=== PATIENT | male | born 1945 | race Caucasian/White ===

== ENCOUNTER → 2024-02-03 13:45 | Outpatient (CLI) | payer OTHER, SELFPAY ==
--- NOTE | 2024-02-03 13:48 | DI.ECHO.S_ITS ---
[place] [facility]+ [facility] : : [address] : : [place] : : [id number] : : Phone: [phone] Echocardiogram Report + + :Name: CLOTILDE MESSINA Study Date: 02/03/2024 Height: 68 in : :[facility] ReadingLocation: Weight: 225 lb : : Gender: Male BSA: 2.1 m2 : :: 1945 Age: 78 yrs BP: 152/95 mmHg: :Reason For Study: ISCHEMIC HEART DISEASE : :Ordering Physician: MARY ELLEN, : :KENN Performed By: Radha Wheeler : :Referring: KENN HYDE : + + Interpretation Summary The ejection fraction is estimated to be 45-50%. The inferior and inferoseptal wharton are hypokinetic. Grade I diastolic dysfunction. The right ventricle is normal in size and function. There is mild mitral regurgitation. There is mild aortic regurgitation. Pulmonary artery pressures cannot be estimated because of the lack of a measurable TR jet velocity. Procedure: A two-dimensional transthoracic echocardiogram with color flow and Doppler was performed. The study quality was technically adequate. There is no prior echocardiogram noted for this patient. The patient was in sinus rhythm with heart rates between 69-77 bpm during the exam. Left Ventricle: The left ventricle is normal in size and wall thickness. The ejection fraction is estimated to be 45-50%. The inferior and inferoseptal wharton are hypokinetic. Diastolic parameters suggest a relaxation abnormality of the left ventricle, consistent with probable normal filling pressures. Right Ventricle: The right ventricle is normal in size and function. Atria: The left atrial size is normal. Right atrial size is normal. There is no Doppler evidence for an interatrial shunt. Mitral Valve: The mitral valve is normal. There is mild mitral regurgitation. Aortic Valve: The aortic valve is trileaflet. The aortic valve is mildly calcified. There is no aortic valve stenosis. There is mild aortic regurgitation. Tricuspid Valve: The tricuspid valve is normal in structure and function. No tricuspid regurgitation. Pulmonary artery pressures cannot be estimated because of the lack of a measurable TR jet velocity. Pulmonic Valve: The pulmonic valve leaflets are thin and pliable; valve motion is normal. There is a trace or physiologic amount of pulmonic regurgitation. Great Vessels: The aortic root is normal size. The dimensions of the ascending aorta are normal. The inferior vena cava was not well visualized. Pericardium/ Pleura There is no pericardial effusion. There is no pleural effusion. MMode/2D Measurements & Calculations LVIDd: 5.5 cm LVOT diam: 2.2 cm LVIDs: 4.4 cm Ao root diam: 2.8 cm FS: 19.7 % asc Aorta Diam: 3.5 cm EPSS: 1.2 cm Ao Arch Diam (Prox Trans): 2.9 cm IVSd: 0.87 cm LVPWd: 0.96 cm LV isidro. diameter/BSA (cm/m^2): 2.5 LV sys. diameter/BSA (cm/m^2): 2.0 LA A2 area: 17.3 cm2 RA long axis: 4.2 cm LA A4 area: 20.4 cm2 RA area: 11.7 cm2 LA length (vol): 5.3 cm RA vol: 27.8 ml LA vol: 56.5 ml RA : 13.0 ml/m2 LA vol index: 26.3 ml/m2 RVD1 (basal): 3.9 cm RVD2 (mid): 3.6 cm TAPSE: 1.9 cm Doppler Measurements & Calculations Ao V2 max: 129.4 cm/sec LVOT Max Jose: 77.7 cm/sec Ao V2 mean: 91.7 cm/sec LV V1 max P.4 mmHg Ao max P.7 mmHg LV V1 VTI: 17.7 cm Ao mean P.7 mmHg CYNTHIA(I,D): 2.7 cm2 Ao V2 VTI: 25.1 cm CYNTHIA(V,D): 2.3 cm2 sev ratio: 0.70 CYNTHIA indexed to BSA (cm^2/m^2): 1.3 MV E max jose: 54.8 cm/sec PA V2 max: 83.9 cm/sec MV A max jose: 85.2 cm/sec PA V2 mean: 62.8 cm/sec MV E/A: 0.64 PA mean P.7 mmHg Med Peak E' Jose: 5.3 cm/sec PA pr(Accel): 48.2 mmHg E/E' med: 10.3 Lat Peak E' Jose: 8.1 cm/sec E/E' lat: 6.8 E/e' average: 8.5 MV dec time: 0.22 sec SV(OT): 68.5 ml Reading Physician:12:42 PM
== END ==
PROVIDERS: Referring Provider Chiropractor; Visit Provider Chiropractor
DX: I08.0 Rheumatic disorders of both mitral and aortic valves (principal); I25.9 Chronic ischemic heart disease, unspecified
CPT/HCPCS: 93306